=== PATIENT | male | born 1930 | race Hispanic/Latino ===

== ENCOUNTER 2021-08-22 13:45 | Inpatient (IN) | payer MEDICARE, OTHER ==
[~2021-08-22] VITALS: Ht 170.2 cm; Wt 60.4 kg
[2021-08-22] MEDS ORDERED: ACETAMINOPHEN 325 MG TAB PO STA (14:06)
[2021-08-22] MEDS ORDERED: SODIUM CHLORIDE 0.9% 1000ML 1,000 ML IV STA (14:08)
[2021-08-22 14:24] LABS: BASOPHILS % 0.3 % (0.0-1.0); EOSINOPHILS % 0.3 % (0.0-6.0); HEMATOCRIT 32.3 % (38.2-49.6); HEMOGLOBIN 10.8 g/dL (14.0-18.0); LYMPHOCYTES # (AUTO) 2.9 (1.0-3.2); LYMPHOCYTES % 24.6 % (18.0-39.1); MEAN CORPUSCULAR HEMOGLOBIN 31.8 pg (28-32); MEAN CORPUSCULAR HGB CONC 33.4 g/dL (31-35); MONOCYTES # (AUTO) 3.4 (0.2-0.8); MONOCYTES % 28.4 % (4.4-11.3); NEUTROPHILS # (AUTO) 5.4 (2.1-6.9); NEUTROPHILS % 44.7 % (38.7-80.0); PLATELET COUNT 146 x10e3/uL (140-360); RED CELL DISTRIBUTION WIDTH 16.3 % (11.7-14.4)
[2021-08-22 14:29] LABS: CLARITY,URINE CLOUDY (CLEAR); COLOR,URINE YELLOW (YELLOW); LEUKOCYTE ESTERASE ,URINE 1+ (NEGATIVE)
[2021-08-22 14:30] LABS: KETONES,URINE NEGATIVE (NEGATIVE); NITRITE,URINE POSITIVE (NEGATIVE); PROTEIN,URINE DIPSTICK 1+ (NEGATIVE); URINE UROBILINOGEN 0.2 mg/dL (0.2 - 1)
[2021-08-22 14:42] LABS: ALBUMIN/GLOBULIN RATIO 0.9 (0.8-2.0); ANION GAP 13.8 mmol/L (8-16); CREATININE, SERUM 1.27 mg/dL (0.72-1.25); POTASSIUM 3.8 mmol/L (3.5-5.1)
[2021-08-22] MEDS ORDERED: PIPERACILLIN/TAZOBACTAM 3.375 GM in SODIUM CHLORIDE 0.9% 50ML 50 ML IV ONE (14:45)
[2021-08-22] MEDS ORDERED: Vancomycin IV 1 GM in SODIUM CHLORIDE 0.9% 250ML 250 ML IV ONE (14:45)
[2021-08-22 15:00] LABS: BACTERIA,URINE MANY /HPF; EPITHELIAL CELLS,URINE FEW /LPF; RENAL EPITHELIAL CELLS,URINE MODERATE; WBC,URINE (MAN) >50 /HPF (0-5)
[2021-08-22] MEDS ORDERED: IBUPROFEN 600 MG TAB PO STA (15:10)
[2021-08-22] MEDS ORDERED: SODIUM CHLORIDE 0.9% 1000ML 1,000 ML IV SCH (15:30)
[2021-08-22 16:54] VITALS: BP 109/65
[2021-08-22] MEDS ORDERED: CYANOCOBALAMIN5 GM PO (17:05)
[2021-08-22] MEDS ORDERED: MELATONIN3 MG PO (17:05)
[2021-08-22] MEDS ORDERED: REFRESH PLUS1 EACH (17:05)
[2021-08-22] MEDS ORDERED: FLONASE ALLERG9.9 ML INH (17:05)
[2021-08-22] MEDS ORDERED: FLOMAX0.4 MG PO (17:05)
[2021-08-22] MEDS ORDERED: MULTIVITAMINS1 EAC6 PO (17:05)
[2021-08-22 17:26] VITALS: BP 109/65
[2021-08-22 17:54] VITALS: BP 109/65
[2021-08-22 20:40] VITALS: BP 102/50
[2021-08-23] VITALS (8 sets, daily range): BP systolic 97–144; BP diastolic 57–76
[2021-08-23] MEDS: ALBUTEROL/IPRATROPIUM 3 ML NEB NEB PRN ×2 (05:00→19:20)
[2021-08-23 07:00] LABS: BASOPHILS % 0.3 % (0.0-1.0); EOSINOPHILS % 0.1 % (0.0-6.0); HEMATOCRIT 32.4 % (38.2-49.6); HEMOGLOBIN 10.4 g/dL (14.0-18.0); LYMPHOCYTES # (AUTO) 3.7 (1.0-3.2); LYMPHOCYTES % 27.6 % (18.0-39.1); MEAN CORPUSCULAR HEMOGLOBIN 31.1 pg (28-32); MEAN CORPUSCULAR HGB CONC 32.1 g/dL (31-35); MONOCYTES # (AUTO) 3.9 (0.2-0.8); MONOCYTES % 29.2 % (4.4-11.3); NEUTROPHILS # (AUTO) 5.6 (2.1-6.9); NEUTROPHILS % 41.2 % (38.7-80.0); PLATELET COUNT 131 x10e3/uL (140-360); RED BLOOD COUNT 3.34 x10e6/uL (4.3-5.7); RED CELL DISTRIBUTION WIDTH 16.5 % (11.7-14.4)
[2021-08-23 07:16] LABS: ANION GAP 14.7 mmol/L (8-16); CALCIUM 8.5 mg/dL (8.4-10.2); CREATININE, SERUM 1.16 mg/dL (0.72-1.25); POTASSIUM 3.7 mmol/L (3.5-5.1)
[2021-08-23 08:52] LABS: BAND NEUTROPHILS % (MANUAL) 1 %; LYMPHOCYTES % (MANUAL) 25 % (19-48); MONOCYTES % (MANUAL) 19 % (3.4-9.0); NEUTROPHILS % (MANUAL) 44 % (40-74); PLATELET ESTIMATE ADEQUATE; PLATELET MORPHOLOGY COMMENT NORMAL; RBC MORPHOLOGY COMMENT NORMAL
[2021-08-23] MEDS: FLUTICASONE PROPIONATE NASAL SPRAY NS SCH ×2 (10:00→16:37)
[2021-08-23] MEDS: MULTIVITAMINS/MINERALS TAB PO SCH (10:05)
[2021-08-23] MEDS: TAMSULOSIN HCL 0.4 MG CAP PO SCH (10:05)
[2021-08-23] MEDS: PIPERACILLIN/TAZOBACTAM 3.375 GM in SODIUM CHLORIDE 0.9% 50ML 50 ML IV SCH ×2 (11:02→17:06)
[2021-08-23] MEDS: ENOXAPARIN SOD INJ 40 MG/0.4 ML SYR SC SCH (16:37)
[2021-08-23] MEDS: OSELTAMIVIR PHOSPHATE 30 MG CAPSULE PO SCH (16:37)
[2021-08-23] MEDS: MELATONIN 5 MG TABLET PO SCH (21:00)
[2021-08-24] VITALS (8 sets, daily range): BP systolic 60–116; BP diastolic 51–91
[2021-08-24] MEDS: PIPERACILLIN/TAZOBACTAM 3.375 GM in SODIUM CHLORIDE 0.9% 50ML 50 ML IV SCH ×4 (06:00→11:46)
[2021-08-24] MEDS: ALBUTEROL/IPRATROPIUM 3 ML NEB NEB PRN (06:33)
[2021-08-24] MEDS: OSELTAMIVIR PHOSPHATE 30 MG CAPSULE PO SCH ×2 (08:48→17:06)
[2021-08-24] MEDS: TAMSULOSIN HCL 0.4 MG CAP PO SCH (08:48)
[2021-08-24] MEDS: MULTIVITAMINS/MINERALS TAB PO SCH (08:48)
[2021-08-24] MEDS: FLUTICASONE PROPIONATE NASAL SPRAY NS SCH ×2 (08:49→17:06)
[2021-08-24 10:52] LABS: BASOPHILS % 0.4 % (0.0-1.0); EOSINOPHILS % 0.2 % (0.0-6.0); HEMATOCRIT 29.1 % (38.2-49.6); HEMOGLOBIN 9.4 g/dL (14.0-18.0); LYMPHOCYTES # (AUTO) 2.2 (1.0-3.2); LYMPHOCYTES % 43.2 % (18.0-39.1); MEAN CORPUSCULAR HEMOGLOBIN 31.6 pg (28-32); MEAN CORPUSCULAR HGB CONC 32.3 g/dL (31-35); MONOCYTES # (AUTO) 1.8 (0.2-0.8); MONOCYTES % 34.2 % (4.4-11.3); NEUTROPHILS # (AUTO) 1.1 (2.1-6.9); NEUTROPHILS % 20.8 % (38.7-80.0); PLATELET COUNT 116 x10e3/uL (140-360); RED BLOOD COUNT 2.97 x10e6/uL (4.3-5.7); RED CELL DISTRIBUTION WIDTH 16.6 % (11.7-14.4)
[2021-08-24 11:09] LABS: ANION GAP 14.1 mmol/L (8-16); CALCIUM 7.4 mg/dL (8.4-10.2); CREATININE, SERUM 1.22 mg/dL (0.72-1.25); POTASSIUM 3.1 mmol/L (3.5-5.1)
[2021-08-24] MEDS ORDERED: POTASSIUM CHLORIDE 20 MEQ TAB CR PO ONE (12:00)
[2021-08-24 12:41] LABS: LYMPHOCYTES % (MANUAL) 54 % (19-48); MONOCYTES % (MANUAL) 23 % (3.4-9.0); NEUTROPHILS % (MANUAL) 19 % (40-74)
[2021-08-24 12:42] LABS: ANISOCYTOSIS SLIGHT; PLATELET ESTIMATE SLIGHTLY DECREASED; PLATELET MORPHOLOGY COMMENT NORMAL; RBC MORPHOLOGY COMMENT NORMAL
[2021-08-24] MEDS: ENOXAPARIN SOD INJ 40 MG/0.4 ML SYR SC SCH (17:06)
[2021-08-24] MEDS ORDERED: CEFTRIAXONE 1 GM in SODIUM CHLORIDE 0.9% 50ML 50 ML IV SCH (18:00)
[2021-08-24] MEDS: MELATONIN 5 MG TABLET PO SCH (20:47)
[2021-08-25 00:05] VITALS: BP 124/69
[2021-08-25 04:00] VITALS: BP 93/73
[2021-08-25 06:47] VITALS: BP 103/65
[2021-08-25] MEDS: ALBUTEROL/IPRATROPIUM 3 ML NEB NEB PRN (07:25)
[2021-08-25 07:33] LABS: BASOPHILS % 0.4 % (0.0-1.0); EOSINOPHILS # (AUTO) 0.1 (0.0-0.4); EOSINOPHILS % 1.3 % (0.0-6.0); HEMATOCRIT 28.7 % (38.2-49.6); HEMOGLOBIN 9.4 g/dL (14.0-18.0); LYMPHOCYTES # (AUTO) 2.6 (1.0-3.2); LYMPHOCYTES % 50.5 % (18.0-39.1); MEAN CORPUSCULAR HEMOGLOBIN 31.8 pg (28-32); MEAN CORPUSCULAR HGB CONC 32.8 g/dL (31-35); MONOCYTES # (AUTO) 1.1 (0.2-0.8); MONOCYTES % 21.1 % (4.4-11.3); NEUTROPHILS # (AUTO) 1.4 (2.1-6.9); NEUTROPHILS % 25.9 % (38.7-80.0); PLATELET COUNT 118 x10e3/uL (140-360); RED BLOOD COUNT 2.96 x10e6/uL (4.3-5.7); RED CELL DISTRIBUTION WIDTH 16.5 % (11.7-14.4)
[2021-08-25 08:02] VITALS: BP 109/60
[2021-08-25 08:04] LABS: ANION GAP 10.9 mmol/L (8-16); CALCIUM 8.7 mg/dL (8.4-10.2); CREATININE, SERUM 1.3 mg/dL (0.72-1.25); POTASSIUM 3.9 mmol/L (3.5-5.1)
[2021-08-25] MEDS ORDERED: TESSALON PERLE100 MG PO (08:13)
[2021-08-25] MEDS ORDERED: TAMIFLU30 MG PO (08:13)
[2021-08-25] MEDS ORDERED: CEPHALEXIN500 MG PO (08:15)
[2021-08-25] MEDS: FLUTICASONE PROPIONATE NASAL SPRAY NS SCH (09:16)
[2021-08-25] MEDS: MULTIVITAMINS/MINERALS TAB PO SCH (09:16)
[2021-08-25] MEDS: TAMSULOSIN HCL 0.4 MG CAP PO SCH (09:16)
[2021-08-25] MEDS: OSELTAMIVIR PHOSPHATE 30 MG CAPSULE PO SCH (09:16)
[2021-08-25 10:57] LABS: EOSINOPHILS % (MANUAL) 1 % (0-7); LYMPHOCYTES % (MANUAL) 41 % (19-48); METAMYELOCYTES % (MANUAL) 2 % (0-0); MONOCYTES % (MANUAL) 26 % (3.4-9.0); MYELOCYTES % (MANUAL) 1 % (0-0); NEUTROPHILS % (MANUAL) 26 % (40-74)
[2021-08-25 10:58] LABS: ANISOCYTOSIS SLIGHT; PLATELET ESTIMATE SLIGHTLY DECREASED; PLATELET MORPHOLOGY COMMENT NORMAL; RBC MORPHOLOGY COMMENT NORMAL
== END 2021-08-25 13:15 | disposition home or self-care (01) | DRG 872 ==
LOC: ER 13:53 → ERHOLD 15:30 → MED/SURG3 16:30
PROVIDERS: ADMIT Internal Medicine; ATTEND Internal Medicine
DX: A41.59 Other Gram-negative sepsis (principal); N10 Acute pyelonephritis; J10.1 Influenza due to other identified influenza virus with other respiratory manifestations; N40.0 Benign prostatic hyperplasia without lower urinary tract symptoms; B96.89 Other specified bacterial agents as the cause of diseases classified elsewhere; Z20.822 Contact with and (suspected) exposure to COVID-19; N18.30 Chronic kidney disease, stage 3 unspecified; E87.6 Hypokalemia
CPT/HCPCS: 36415; 71045; 80048; 80053; 81001; 83605; 83880; 84484; 85025; 87040; 87086; 87186; 93005; 94640; 94799; 99284; J0696; J1650; J2543; J3370; J7030; J7050; U0002